=== PATIENT | male | born 1985 | race Hispanic/Latino ===

== ENCOUNTER 2018-02-18 21:59 | Inpatient (IN) | payer OTHER ==
[2018-02-18] MEDS ORDERED: Sodium Chloride 0.9% 1,000 ML IV STA (22:36)
[2018-02-18] MEDS ORDERED: Iohexol 240 (50 ml) PO ONE (22:36)
[2018-02-18] MEDS ORDERED: Iohexol 240 (50 ml) ONE (22:53)
[2018-02-18 23:16] LABS: BASO # 0.1 K/uL (0.0-0.2); BASO % 0.4 % (0.0-2.0); EOS # 0.1 K/uL (0.0-0.7); EOS % 0.8 % (0.0-4.0); HEMOGLOBIN 14.4 g/dL (12.0-18.0); LYMPH # 1.8 K/uL (1.0-4.3); LYMPH % 11.9 % (20.0-40.0); MEAN CELL VOLUME 93.6 fl (80.0-94.0); MEAN CORPUSCULAR HEMOGLOBIN 31.3 pg (27.0-31.0); MEAN CORPUSCULAR HGB CONC 33.5 g/dL (33.0-37.0); MONO # 1.3 K/uL (0.0-0.8); MONO % 8.6 % (0.0-10.0); NEUT # 11.5 K/uL (1.8-7.0); NEUT % 78.3 % (50.0-75.0); RBC 4.6 Mil/uL (4.40-5.90); RED CELL DISTRIBUTION WIDTH 11.7 % (11.5-14.5); WHITE BLOOD COUNT 14.7 K/uL (4.8-10.8)
[2018-02-18 23:26] LABS: ALB/GLOB RATIO 1.1 (1.0-2.1); ALBUMIN 4.2 g/dL (3.5-5.0); ALT/SGPT 39 U/L (21-72); AST/SGOT 34 U/L (17-59); BLOOD UREA NITROGEN 16 mg/dl (9-20); CALCIUM 9.5 mg/dL (8.4-10.2); GFR AFRICAN-AMERICAN > 60; GFR NON-AFRICAN AMERICAN > 60
[2018-02-19 00:42] LABS: URINE BILIRUBIN NEGATIVE (NEGATIVE); URINE BLOOD NEGATIVE (NEGATIVE); URINE CLARITY CLEAR (Clear); URINE COLOR STRAW (YELLOW); URINE GLUCOSE (UA) NEG (Normal); URINE LEUKOCYTE ESTERASE NEG Leu/uL (Negative); URINE PROTEIN NEGATIVE (NEGATIVE); URINE UROBILINOGEN 0.2-1.0 mg/dL (0.2-1.0)
--- NOTE | 2018-02-19 00:50 | ED PDOC ---
HPI: Abdomen Time Seen by Provider: 02/18/18 22:01 Chief Complaint (Nursing): Abdominal Pain Chief Complaint (Provider): Suprapubic abdominal pain intermittent x 3 weeks History Per: Patient History/Exam Limitations: no limitations Onset/Duration Of Symptoms: Days Outside of [place] travel?: No Current Symptoms Are (Timing): Still Present Location Of Pain/Discomfort: Suprapubic Additional Complaint(s): 32 yo male with no medical problems presents with suprapubic tenderness intermittent for 3 weeks. PT seen by PMD and given antibiotics for UTI. Pt returned to PMD yesterday and told it was not a UTI (cultures negative). Pt states that he was sent for labs and CT but cannot get the CT until next week. Pt states that tonight he was having sharp pain in the rectal area. Pt states he decided to come in because of worsening rectal pain and being unable to get CT until late next week. Pt taking tylenol for pain and reports decreased appetite. Past Medical History Reviewed: Historical Data, Nursing Documentation, Vital Signs Vital Signs: Last Vital Signs Temp 98.2 F 02/18/18 22:04 Pulse 92 H 02/18/18 22:04 Resp 20 02/18/18 22:04 BP 118/81 02/18/18 22:04 Pulse Ox 100 02/19/18 00:52 - Medical History PMH: No Chronic Diseases - Surgical History Surgical History: No Surg Hx - Family History Family History: States: No Known Family Hx - Living Arrangements Living Arrangements: With Family - Allergies Allergies/Adverse Reactions: Allergies Allergy/AdvReac Type Severity Reaction Status Date / Time No Known Allergies Allergy Verified 02/18/18 22:04 Review of Systems ROS Statement: Except As Marked, All Systems Reviewed And Found Negative Constitutional: Negative for: Fever, Chills Respiratory: Negative for: Cough, Shortness of Breath Gastrointestinal: Positive for: Abdominal Pain, Rectal Pain, Other (Decreased appetite ). Negative for: Nausea, Vomiting Physical Exam - Reviewed Nursing Documentation Reviewed: Yes Vital Signs Reviewed: Yes - Physical Exam Appears: Positive for: Well, Non-toxic, No Acute Distress Head Exam: Positive for: ATRAUMATIC, NORMAL INSPECTION, NORMOCEPHALIC Skin: Positive for: Normal Color, Warm, DRY Eye Exam: Positive for: Normal appearance ENT: Positive for: Normal ENT Inspection Neck: Positive for: Normal, Painless ROM Cardiovascular/Chest: Positive for: Regular Rate, Rhythm Respiratory: Positive for: Normal Breath Sounds. Negative for: Accessory Muscle Use, Respiratory Distress Gastrointestinal/Abdominal: Positive for: Soft, Tenderness (Suprapubic, right sided ) Back: Positive for: Normal Inspection Extremity: Positive for: Normal ROM Neurologic/Psych: Positive for: Alert, Oriented - Laboratory Results Result Diagrams: 02/18/18 23:13 02/18/18 23:13 - ECG O2 Sat by Pulse Oximetry: 100 Medical Decision Making Medical Decision Making: Elevated WBC Acute appendicitis with abscess formation. Discussed with Dr. Chris Landrum, rn surgical and Diogenes Vuong NP. Disposition - Clinical Impression Clinical Impression: Appendicitis with abscess - Patient ED Disposition Is Patient to be Admitted: Yes - Disposition Disposition Time: 03:24 Condition: STABLE - Pt Status Changed To: Hospital Disposition Of: Inpatient - Admit Certification Admit to Inpatient:: After my assessment, the patient will require hospitalization for at least two midnights. This is because of the severity of symptoms shown, intensity of services needed, and/or the medical risk in this patient being treated as an outpatient. - POA Present On Arrival: None
[2018-02-19] MEDS ORDERED: Iohexol 300 100 ML IJ ONE (01:26)
[2018-02-19] MEDS ORDERED: Sodium Chloride 0.9% 50 ML IV ONE (01:27)
--- NOTE | 2018-02-19 02:52 | CT ---
EXAM: CT Abdomen and Pelvis With Intravenous Contrast CLINICAL HISTORY: 32 years old, male; Pain; Other: Suprapubic. Rectal pain; Additional info: Suprapubic pain, rectal pain TECHNIQUE: Axial computed tomography images of the abdomen and pelvis with intravenous contrast. All CT scans at this facility use one or more dose reduction techniques, viz.: automated exposure control; ma/kV adjustment per patient size (including targeted exams where dose is matched to indication; i.e. head); or iterative reconstruction technique. Coronal and sagittal reformatted images were created and reviewed. CONTRAST: 95 mL of OMNIPAQUE-300 administered intravenously. COMPARISON: No relevant prior studies available. FINDINGS: Lung bases: Unremarkable. No mass. No consolidation. ABDOMEN: Liver: Unremarkable. No mass. Gallbladder and bile ducts: Unremarkable. No calcified stones. No ductal dilation. Pancreas: Unremarkable. No mass. No ductal dilation. Spleen: Unremarkable. No splenomegaly. Adrenals: Unremarkable. No mass. Kidneys and ureters: Unremarkable. No solid mass. No hydronephrosis. Stomach and bowel: See below. PELVIS: Appendix: Thick walled fluid collection in right pelvis series 2 image #57. This measures 2.8 x 2.8 CM. There is an adjacent thick walled loop of small bowel. Bladder: Unremarkable. No mass. Reproductive: Unremarkable as visualized. ABDOMEN and PELVIS: Intraperitoneal space: Inflammatory changes right lower quadrant. No free air. No significant fluid collection. Bones/joints: No acute fracture. No dislocation. Soft tissues: Unremarkable. Vasculature: Unremarkable. No abdominal aortic aneurysm. Lymph nodes: Multiple enlarged right lower quadrant mesenteric lymph nodes. IMPRESSION: CT findings suggestive of acute appendicitis with associated abscess formation. Remainder of findings as above.
[2018-02-19] MEDS ORDERED: Piperacillin/Tazobact 3.375 GM in Sodium Chloride 0.9% 100 ML IV STA (03:09)
[2018-02-19] MEDS ORDERED: Piperacillin/Tazobact 3.375 gm Inj IVPB ONE (03:34)
[2018-02-19] MEDS ORDERED: Morphine 4 MG/ML VIAL ONE (03:58)
--- NOTE | 2018-02-19 04:03 | CP.PCM.CON ---
History of Present Illness - History of Present Illness History of Present Illness: General Surgery Consult Re: Acute appendicitis with abscess HPI: 32M presented to the ED C/O suprapubic abdominal pain x 3 weeks. Pain progressively increased until 02/16/18 when it improved for a while and then came back. He had seen his PMD and the pt states he was sent for labs and a CT but cannot get the CT until next week. Tonight, he was having sharp pain in the rectal area and it was much worse with defecation. After feeling Nausea and feverish after the BM, he decided to come in because of worsening rectal pain and being unable to get CT until late next week. Pt taking tylenol for pain with minimal relief. + decreased appetite. Denies emesis, headache, chest pain, SOB, upper abd pain , melena, hematochezia, dysuria, hematuria. CT shows appendicitis with adjacent abscess in pelvis PMH: Denies PSH: Denies SH: No tobacco or street drugs. Social EtOH FH: Non contributory All: NKDA Meds: Denies Review of Systems - Review of Systems All systems: reviewed and no additional remarkable complaints except (as per HPI ) Past Patient History - Past Social History Smoking Status: Never Smoked - PSYCHIATRIC Hx Substance Use: No - SURGICAL HISTORY Hx Surgeries: No Meds Allergies/Adverse Reactions: Allergies Allergy/AdvReac Type Severity Reaction Status Date / Time No Known Allergies Allergy Verified 02/18/18 22:04 - Medications Medications: Current Medications Piperacillin Sod/Tazobactam (Sod 3.375 gm/ Sodium Chloride) 100 mls @ 100 mls/ hr IV STAT STA PRN Reason: Protocol Stop: 02/19/18 04:08 Physical Exam - Constitutional Appears: Non-toxic, No Acute Distress - Head Exam Head Exam: ATRAUMATIC, NORMOCEPHALIC - Eye Exam Eye Exam: EOMI. absent: Scleral icterus - ENT Exam ENT Exam: Mucous Membranes Dry Additional comments: trachea midline - Neck Exam Neck exam: Positive for: Full Rom - Respiratory Exam Respiratory Exam: NORMAL BREATHING PATTERN. absent: Respiratory Distress - Cardiovascular Exam Cardiovascular Exam: RRR, +S1, +S2 - GI/Abdominal Exam GI & Abdominal Exam: Guarding (mild over suprapubic area), Soft, Tenderness ( mild RLQ pain, Most in suprapubic area). absent: Distended, Firm, Hernia, Rebound, Rigid - Extremities Exam Extremities exam: Positive for: normal capillary refill, pedal pulses present. Negative for: calf tenderness - Back Exam Back exam: absent: CVA tenderness (L), CVA tenderness (R) - Psychiatric Exam Psychiatric exam: Anxious - Skin Skin Exam: Dry, Warm Results - Vital Signs Recent Vital Signs: Last Vital Signs Temp 98.2 F 02/18/18 22:04 Pulse 92 H 02/18/18 22:04 Resp 20 02/18/18 22:04 BP 118/81 02/18/18 22:04 Pulse Ox 100 02/19/18 03:24 - Labs Result Diagrams: 02/18/18 23:13 02/18/18 23:13 Labs: Laboratory Results - last 24 hr 02/18/18 02/18/18 02/19/18 23:13 23:13 00:27 WBC 14.7 H RBC 4.60 Hgb 14.4 Hct 43.0 MCV 93.6 MCH 31.3 H MCHC 33.5 RDW 11.7 Plt Count 248 MPV 9.0 Neut % (Auto) 78.3 H Lymph % (Auto) 11.9 L Tillman % (Auto) 8.6 Eos % (Auto) 0.8 Baso % (Auto) 0.4 Neut # (Auto) 11.5 H Lymph # (Auto) 1.8 Tillman # (Auto) 1.3 H Eos # (Auto) 0.1 Baso # (Auto) 0.1 Sodium 138 Potassium 4.3 Chloride 99 Carbon Dioxide 25 Anion Gap 18 BUN 16 Creatinine 0.8 Est GFR ( Amer) > 60 Est GFR (Non-Af Amer) > 60 Random Glucose 109 Calcium 9.5 Total Bilirubin 0.8 AST 34 ALT 39 Alkaline Phosphatase 86 Total Protein 8.1 Albumin 4.2 Globulin 3.9 Albumin/Globulin Ratio 1.1 Urine Color Straw Urine Clarity Clear Urine pH 7.0 Ur Specific [place] 1.006 Urine Protein Negative Urine Glucose (UA) Neg Urine Ketones 20 Urine Blood Negative Urine Nitrate Negative Urine Bilirubin Negative Urine Urobilinogen 0.2-1.0 Ur Leukocyte Esterase Neg - Imaging and Cardiology CT scan - abdomen Status: Image reviewed by me, Report reviewed by me Assessment & Plan - Assessment and Plan (Free Text) Assessment: 32M with perforated appendicitis Plan: NPO IVF Continue abx Serial abd exams, monitor for fevers Daily labs Recommend IR evaluation for possible drainage Will D/W Dr. Diallo Armijo PGY4
[2018-02-19] MEDS: Lactated Ringer's 1,000 ML IV SCH ×2 (05:49→17:10)
--- NOTE | 2018-02-19 08:21 | CP.PCM.HP ---
History of Present Illness - History of Present Illness History of Present Illness: pt admitted for perf appy after outpt tx for UTI and abd pain over 1 wk. states felt slightly better 2-3 days ago then felt worse. no f/c, n/v/d. bw noted. case d/c w/ vice president of human resources dr rubin. repeat labs ordered for this am Present on Admission - Present on Admission Any Indicators Present on Admission: No Review of Systems - Gastrointestinal Gastrointestinal: As Per HPI, Abdominal Pain Past Patient History - Past Medical History & Family History Past Medical History?: No - Past Social History Smoking Status: Never Smoked - MUSCULOSKELETAL/RHEUMATOLOGICAL Hx Falls: No - PSYCHIATRIC Hx Substance Use: No - SURGICAL HISTORY Hx Surgeries: No - ANESTHESIA Hx Anesthesia: No Hx Anesthesia Reactions: No Meds Allergies/Adverse Reactions: Allergies Allergy/AdvReac Type Severity Reaction Status Date / Time No Known Allergies Allergy Verified 02/18/18 22:04 Physical Exam - Constitutional Appears: Well, Non-toxic, No Acute Distress - Head Exam Head Exam: ATRAUMATIC, NORMAL INSPECTION, NORMOCEPHALIC - Eye Exam Eye Exam: EOMI, Normal appearance, PERRL Pupil Exam: NORMAL ACCOMODATION, PERRL - ENT Exam ENT Exam: Mucous Membranes Moist, Normal Exam - Neck Exam Neck exam: Positive for: Normal Inspection - Respiratory Exam Respiratory Exam: Clear to Auscultation Bilateral, NORMAL BREATHING PATTERN - Cardiovascular Exam Cardiovascular Exam: REGULAR RHYTHM, RRR, +S1, +S2 - GI/Abdominal Exam GI & Abdominal Exam: Normal Bowel Sounds, Soft, Tenderness Additional comments: rlq tenderness "soreness" - Extremities Exam Extremities exam: Positive for: full ROM, normal capillary refill, normal inspection, pedal pulses present - Back Exam Back exam: NORMAL INSPECTION - Neurological Exam Neurological exam: Alert, CN II-XII Intact, Normal Gait, Oriented x3, Reflexes Normal - Psychiatric Exam Psychiatric exam: Normal Affect, Normal Mood - Skin Skin Exam: Dry, Intact, Normal Color, Warm Results - Vital Signs Recent Vital Signs: Last Vital Signs Temp 97.8 F 02/19/18 07:55 Pulse 74 02/19/18 07:55 Resp 18 02/19/18 07:55 BP 102/54 L 02/19/18 07:55 Pulse Ox 99 02/19/18 07:55 - Labs Result Diagrams: 02/18/18 23:13 02/18/18 23:13 Labs: Laboratory Results - last 24 hr 02/18/18 02/18/18 02/19/18 23:13 23:13 00:27 WBC 14.7 H RBC 4.60 Hgb 14.4 Hct 43.0 MCV 93.6 MCH 31.3 H MCHC 33.5 RDW 11.7 Plt Count 248 MPV 9.0 Neut % (Auto) 78.3 H Lymph % (Auto) 11.9 L [place] % (Auto) 8.6 Eos % (Auto) 0.8 Baso % (Auto) 0.4 Neut # (Auto) 11.5 H Lymph # (Auto) 1.8 [place] # (Auto) 1.3 H Eos # (Auto) 0.1 Baso # (Auto) 0.1 Sodium 138 Potassium 4.3 Chloride 99 Carbon Dioxide 25 Anion Gap 18 BUN 16 Creatinine 0.8 Est GFR ( Amer) > 60 Est GFR (Non-Af Amer) > 60 Random Glucose 109 Lactic Acid Calcium 9.5 Total Bilirubin 0.8 AST 34 ALT 39 Alkaline Phosphatase 86 Total Protein 8.1 Albumin 4.2 Globulin 3.9 Albumin/Globulin Ratio 1.1 Urine Color Straw Urine Clarity Clear Urine pH 7.0 Ur Specific [place] 1.006 Urine Protein Negative Urine Glucose (UA) Neg Urine Ketones 20 Urine Blood Negative Urine Nitrate Negative Urine Bilirubin Negative Urine Urobilinogen 0.2-1.0 Ur Leukocyte Esterase Neg 02/19/18 04:31 WBC RBC Hgb Hct MCV MCH MCHC RDW Plt Count MPV Neut % (Auto) Lymph % (Auto) [place] % (Auto) Eos % (Auto) Baso % (Auto) Neut # (Auto) Lymph # (Auto) [place]y # (Auto) Eos # (Auto) Baso # (Auto) Sodium Potassium Chloride Carbon Dioxide Anion Gap BUN Creatinine Est GFR ( Amer) Est GFR (Non-Af Amer) Random Glucose Lactic Acid 0.9 Calcium Total Bilirubin AST ALT Alkaline Phosphatase Total Protein Albumin Globulin Albumin/Globulin Ratio Urine Color Urine Clarity Urine pH Ur Specific [place] Urine Protein Urine Glucose (UA) Urine Ketones Urine Blood Urine Nitrate Urine Bilirubin Urine Urobilinogen Ur Leukocyte Esterase Assessment & Plan (1) DVT prophylaxis Assessment and Plan: scd and ae hose ambulation Status: Acute (2) Appendicitis with abscess Assessment and Plan: zosyn surgery and ?? ir consult pain and nausea control ivf npo monitor bw serial abd exams Status: Acute Decision To Admit - Pt Status Changed To: Hospital Disposition Of: Inpatient - Admit Certification Admit to Inpatient:: After my assessment, the patient will require hospitalization for at least two midnights. This is because of the severity of symptoms shown, intensity of services needed, and/or the medical risk in this patient being treated as an outpatient. - . Bed Request Type: Med/Surg Admitting Physician: Zach Hennessy
[2018-02-19] MEDS: Piperacillin/Tazobact 3.375 GM in Sodium Chloride 0.9% 100 ML IVPB SCH ×3 (09:46→21:44)
[2018-02-19 12:04] LABS: BASO # 0.1 K/uL (0.0-0.2); BASO % 0.3 % (0.0-2.0); EOS # 0.2 K/uL (0.0-0.7); HEMOGLOBIN 14.1 g/dL (12.0-18.0); LYMPH # 1.3 K/uL (1.0-4.3); LYMPH % 7.8 % (20.0-40.0); MEAN CELL VOLUME 92.3 fl (80.0-94.0); MEAN CORPUSCULAR HGB CONC 34.7 g/dL (33.0-37.0); MEAN PLATELET VOLUME 9.4 fl (7.2-11.7); MONO # 1.4 K/uL (0.0-0.8); MONO % 8.1 % (0.0-10.0); NEUT # 14.2 K/uL (1.8-7.0); NEUT % 82.8 % (50.0-75.0); NRBC % 0.1 % (0.0-0.0); PLATELET COUNT 259 K/uL (130-400); RED CELL DISTRIBUTION WIDTH 11.7 % (11.5-14.5); WHITE BLOOD COUNT 17.1 K/uL (4.8-10.8)
[2018-02-19 12:32] LABS: ALB/GLOB RATIO 1.1 (1.0-2.1); ALBUMIN 3.6 g/dL (3.5-5.0); ALT/SGPT 36 U/L (21-72); AST/SGOT 20 U/L (17-59); BLOOD UREA NITROGEN 13 mg/dl (9-20); CALCIUM 9.1 mg/dL (8.4-10.2); GFR AFRICAN-AMERICAN > 60; GFR NON-AFRICAN AMERICAN > 60
[2018-02-19 13:13] LABS: BANDS 2 % (0-2); EOSINOPHIL 1 % (0-7); LYMPHOCYTE 8 % (20-50); MONOCYTE 8 % (0-10); NEUTROPHIL 81 % (42-75); PLATELET ESTIMATE NORMAL (NORMAL); TOTAL CELLS COUNTED 100
[2018-02-20] MEDS: Piperacillin/Tazobact 3.375 GM in Sodium Chloride 0.9% 100 ML IVPB SCH ×4 (04:23→21:50)
[2018-02-20 06:26] LABS: BASO % 0.3 % (0.0-2.0); EOS # 0.3 K/uL (0.0-0.7); EOS % 2.5 % (0.0-4.0); HEMOGLOBIN 13.6 g/dL (12.0-18.0); LYMPH # 1.8 K/uL (1.0-4.3); LYMPH % 13.7 % (20.0-40.0); MEAN CELL VOLUME 93.4 fl (80.0-94.0); MEAN CORPUSCULAR HEMOGLOBIN 31.5 pg (27.0-31.0); MEAN CORPUSCULAR HGB CONC 33.7 g/dL (33.0-37.0); MEAN PLATELET VOLUME 8.9 fl (7.2-11.7); MONO # 1.3 K/uL (0.0-0.8); MONO % 9.8 % (0.0-10.0); NEUT # 9.6 K/uL (1.8-7.0); NEUT % 73.7 % (50.0-75.0); RBC 4.31 Mil/uL (4.40-5.90); RED CELL DISTRIBUTION WIDTH 11.9 % (11.5-14.5)
[2018-02-20] MEDS: Lactated Ringer's 1,000 ML IV SCH ×3 (06:38→21:03)
[2018-02-20 06:48] LABS: ALBUMIN 3.3 g/dL (3.5-5.0); ALT/SGPT 32 U/L (21-72); AST/SGOT 17 U/L (17-59); BLOOD UREA NITROGEN 7 mg/dl (9-20); GFR AFRICAN-AMERICAN > 60; GFR NON-AFRICAN AMERICAN > 60
--- NOTE | 2018-02-20 09:30 | CP.PCM.PN ---
Subjective - Date & Time of Evaluation Date of Evaluation: 02/20/18 Time of Evaluation: 09:30 - Subjective Subjective: pt doing well, bw noted-wbc now 13. chris liquid, ?? adv as per surgery ir consult in am all c/s to this time negative. pt c/o mild headahce-tylenol ordered case d/c at length w/dr park-surgery Objective - Vital Signs/Intake and Output Vital Signs (last 24 hours): Temp Pulse Resp BP Pulse Ox 98.1 F 74 20 101/64 97 02/20/18 08:38 02/20/18 08:38 02/20/18 08:38 02/20/18 08:38 02/20/18 08:38 - Medications Medications: Current Medications Piperacillin Sod/Tazobactam (Sod 3.375 gm/ Sodium Chloride) 100 mls @ 100 mls/ hr IVPB Q6 GIRISH PRN Reason: Protocol Last Admin: 02/20/18 04:23 Dose: 100 mls/hr Lactated Ringer's (Lactated Ringer's) 1,000 mls @ 100 mls/hr IV .Q10H [facility] Last Admin: 02/20/18 06:38 Dose: 100 mls/hr Morphine Sulfate (Morphine) 4 mg IVP Q4 PRN PRN Reason: Pain, moderate (4-7) Last Admin: 02/20/18 04:32 Dose: 4 mg Ondansetron HCl (Zofran Inj) 4 mg IVP Q4 PRN PRN Reason: Nausea/Vomiting Last Admin: 02/20/18 04:30 Dose: 4 mg - Labs Labs: 02/20/18 06:05 02/20/18 06:05 - Constitutional Appears: Well, Non-toxic, No Acute Distress - Head Exam Head Exam: ATRAUMATIC, NORMAL INSPECTION, NORMOCEPHALIC - Eye Exam Eye Exam: EOMI, Normal appearance, PERRL Pupil Exam: NORMAL ACCOMODATION, PERRL - ENT Exam ENT Exam: Mucous Membranes Moist, Normal Exam - Neck Exam Neck Exam: Full ROM, Normal Inspection. absent: Lymphadenopathy - Respiratory Exam Respiratory Exam: Clear to Ausculation Bilateral, NORMAL BREATHING PATTERN - Cardiovascular Exam Cardiovascular Exam: REGULAR RHYTHM, RRR, +S1, +S2. absent: Murmur - GI/Abdominal Exam GI & Abdominal Exam: Soft, Tenderness, Normal Bowel Sounds Additional comments: sore ness to rlq - Extremities Exam Extremities Exam: Full ROM, Normal Capillary Refill, Normal Inspection. absent : Joint Swelling, Pedal Edema - Back Exam Back Exam: NORMAL INSPECTION - Neurological Exam Neurological Exam: Alert, Awake, CN II-XII Intact, Normal Gait, Oriented x3 - Psychiatric Exam Psychiatric exam: Normal Affect, Normal Mood - Skin Skin Exam: Dry, Intact, Normal Color, Warm Assessment and Plan (1) DVT prophylaxis Status: Acute (2) Appendicitis with abscess Status: Acute - Assessment and Plan (Free Text) Assessment: (1) DVT prophylaxis Assessment and Plan: scd and ae hose ambulation Status: Acute (2) Appendicitis with abscess Assessment and Plan: zosyn surgery and ?? ir consult pain and nausea control ivf npo monitor bw serial abd exams adv diet as per surgery appears to be improving Status: Acute 3-headache=-tylenol prn, hydration
--- NOTE | 2018-02-20 11:20 | CP.PCM.PN ---
Subjective - Date & Time of Evaluation Date of Evaluation: 02/20/18 Time of Evaluation: 06:50 - Subjective Subjective: Patient seen and examined with Dr. Landrum. No acute events over night. Tolerating liquid diet. Patient states he feels better. Reports some RLQ abdominal pain. Denies n/v. Objective - Vital Signs/Intake and Output Vital Signs (last 24 hours): Temp Pulse Resp BP Pulse Ox 98.1 F 74 20 101/64 97 02/20/18 08:38 02/20/18 08:38 02/20/18 08:38 02/20/18 08:38 02/20/18 08:38 - Medications Medications: Current Medications Acetaminophen (Tylenol 325mg Tab) 650 mg PO Q6 PRN PRN Reason: Headache Last Admin: 02/20/18 10:18 Dose: 650 mg Piperacillin Sod/Tazobactam (Sod 3.375 gm/ Sodium Chloride) 100 mls @ 100 mls/ hr IVPB Q6 GIRISH PRN Reason: Protocol Last Admin: 02/20/18 09:44 Dose: 100 mls/hr Lactated Ringer's (Lactated Ringer's) 1,000 mls @ 100 mls/hr IV .Q10H GIRISH Last Admin: 02/20/18 06:38 Dose: 100 mls/hr Morphine Sulfate (Morphine) 4 mg IVP Q4 PRN PRN Reason: Pain, moderate (4-7) Last Admin: 02/20/18 04:32 Dose: 4 mg Ondansetron HCl (Zofran Inj) 4 mg IVP Q4 PRN PRN Reason: Nausea/Vomiting Last Admin: 02/20/18 04:30 Dose: 4 mg - Labs Labs: 02/20/18 06:05 02/20/18 06:05 - Constitutional Appears: No Acute Distress - Head Exam Head Exam: NORMOCEPHALIC - Eye Exam Eye Exam: Normal appearance - ENT Exam ENT Exam: Mucous Membranes Moist - Respiratory Exam Respiratory Exam: NORMAL BREATHING PATTERN - Cardiovascular Exam Cardiovascular Exam: +S1, +S2 - GI/Abdominal Exam GI & Abdominal Exam: Soft, Tenderness Additional comments: RLQ tenderness on deep palpation - Neurological Exam Neurological Exam: Alert, Awake, Oriented x3 - Psychiatric Exam Psychiatric exam: Normal Mood - Skin Skin Exam: Dry, Intact, Warm Assessment and Plan - Assessment and Plan (Free Text) Assessment: 32M w appendicitis and periappendiceal abscess Plan: Full liquid diet ABx Analgesic prn Anti-emetic prn Tylenol prn fever>100.4F Recommend IR consult for abd abscess D/w Dr. Diallo BADILLO PGY2
[2018-02-21] MEDS: Piperacillin/Tazobact 3.375 GM in Sodium Chloride 0.9% 100 ML IVPB SCH ×4 (04:12→21:21)
[2018-02-21 06:21] LABS: BASO % 0.3 % (0.0-2.0); EOS # 0.4 K/uL (0.0-0.7); EOS % 3.2 % (0.0-4.0); HEMOGLOBIN 13.8 g/dL (12.0-18.0); LYMPH % 16.8 % (20.0-40.0); MEAN CELL VOLUME 93.9 fl (80.0-94.0); MEAN CORPUSCULAR HEMOGLOBIN 31.3 pg (27.0-31.0); MEAN CORPUSCULAR HGB CONC 33.3 g/dL (33.0-37.0); MEAN PLATELET VOLUME 8.8 fl (7.2-11.7); MONO % 8.8 % (0.0-10.0); NEUT # 8.3 K/uL (1.8-7.0); NEUT % 70.9 % (50.0-75.0); RBC 4.42 Mil/uL (4.40-5.90); RED CELL DISTRIBUTION WIDTH 11.6 % (11.5-14.5); WHITE BLOOD COUNT 11.7 K/uL (4.8-10.8)
[2018-02-21 06:45] LABS: ALBUMIN 3.4 g/dL (3.5-5.0); ALT/SGPT 32 U/L (21-72); AST/SGOT 18 U/L (17-59); BLOOD UREA NITROGEN 4 mg/dl (9-20); GFR AFRICAN-AMERICAN > 60; GFR NON-AFRICAN AMERICAN > 60
--- NOTE | 2018-02-21 07:54 | CP.PCM.PN ---
Subjective - Date & Time of Evaluation Date of Evaluation: 02/21/18 Time of Evaluation: 07:53 - Subjective Subjective: pt doign well, pain controlled. nof/c, n/v/d. having + bm. seen at bedside w/ surgical residents for ir [place] today Objective - Vital Signs/Intake and Output Vital Signs (last 24 hours): Temp Pulse Resp BP Pulse Ox 98.4 F 70 20 92/54 L 100 02/21/18 00:00 02/21/18 00:00 02/21/18 00:00 02/21/18 00:00 02/21/18 00:00 - Medications Medications: Current Medications Acetaminophen (Tylenol 325mg Tab) 650 mg PO Q6 PRN PRN Reason: Headache Last Admin: 02/20/18 10:18 Dose: 650 mg Piperacillin Sod/Tazobactam (Sod 3.375 gm/ Sodium Chloride) 100 mls @ 100 mls/ hr IVPB Q6 GIRISH PRN Reason: Protocol Last Admin: 02/21/18 04:12 Dose: 100 mls/hr Lactated Ringer's (Lactated Ringer's) 1,000 mls @ 100 mls/hr IV .Q10H GIRISH Last Admin: 02/20/18 21:03 Dose: 100 mls/hr Morphine Sulfate (Morphine) 4 mg IVP Q4 PRN PRN Reason: Pain, moderate (4-7) Last Admin: 02/20/18 04:32 Dose: 4 mg Ondansetron HCl (Zofran Inj) 4 mg IVP Q4 PRN PRN Reason: Nausea/Vomiting Last Admin: 02/20/18 20:58 Dose: 4 mg - Labs Labs: 02/21/18 06:00 02/21/18 06:00 - Constitutional Appears: Well, Non-toxic, No Acute Distress - Head Exam Head Exam: ATRAUMATIC, NORMAL INSPECTION, NORMOCEPHALIC - Eye Exam Eye Exam: EOMI, Normal appearance, PERRL Pupil Exam: NORMAL ACCOMODATION, PERRL - ENT Exam ENT Exam: Mucous Membranes Moist, Normal Exam - Neck Exam Neck Exam: Full ROM, Normal Inspection. absent: Lymphadenopathy - Respiratory Exam Respiratory Exam: Clear to Ausculation Bilateral, NORMAL BREATHING PATTERN - Cardiovascular Exam Cardiovascular Exam: REGULAR RHYTHM, RRR, +S1, +S2. absent: Murmur - GI/Abdominal Exam GI & Abdominal Exam: Soft, Normal Bowel Sounds. absent: Tenderness - Extremities Exam Extremities Exam: Full ROM, Normal Capillary Refill, Normal Inspection. absent : Joint Swelling, Pedal Edema - Back Exam Back Exam: NORMAL INSPECTION - Neurological Exam Neurological Exam: Alert, Awake, CN II-XII Intact, Normal Gait, Oriented x3 - Psychiatric Exam Psychiatric exam: Normal Affect, Normal Mood - Skin Skin Exam: Dry, Intact, Normal Color, Warm Assessment and Plan (1) DVT prophylaxis Status: Acute (2) Appendicitis with abscess Status: Acute - Assessment and Plan (Free Text) Assessment: (1) DVT prophylaxis Assessment and Plan: scd and ae hose ambulation Status: Acute (2) Appendicitis with abscess Assessment and Plan: zosyn surgery and ir consult today pain and nausea control ivf liquid diet monitor bw serial abd exams adv diet as per surgery appears to be improving Status: Acute 3-headache=-tylenol prn, hydration
--- NOTE | 2018-02-21 08:43 | PCM.IRP ---
Chief Complaint: IR consulted to eval for percutaneous drainage of perforated appendiceal abscess. CT reviewed. No safe window for percutaneous drainage. Objective - Vital Signs/Intake and Output Vital Signs (last 24 hours): Vital Signs - 24 hr 02/20/18 02/20/18 02/21/18 16:03 16:27 00:00 Temperature 98.2 F 98.4 F Pulse Rate 60 61 70 Respiratory 20 18 20 Rate Blood Pressure 92/59 L 92/54 L O2 Sat by Pulse 99 99 100 Oximetry 02/21/18 07:53 Temperature 98.1 F Pulse Rate 60 Respiratory 20 Rate Blood Pressure 93/59 L O2 Sat by Pulse 97 Oximetry - Medications Medications: Current Medications Acetaminophen (Tylenol 325mg Tab) 650 mg PO Q6 PRN PRN Reason: Headache Last Admin: 02/20/18 10:18 Dose: 650 mg Piperacillin Sod/Tazobactam (Sod 3.375 gm/ Sodium Chloride) 100 mls @ 100 mls/ hr IVPB Q6 GIRISH PRN Reason: Protocol Last Admin: 02/21/18 04:12 Dose: 100 mls/hr Lactated Ringer's (Lactated Ringer's) 1,000 mls @ 100 mls/hr IV .Q10H GIRISH Last Admin: 02/20/18 21:03 Dose: 100 mls/hr Morphine Sulfate (Morphine) 4 mg IVP Q4 PRN PRN Reason: Pain, moderate (4-7) Last Admin: 02/20/18 04:32 Dose: 4 mg Ondansetron HCl (Zofran Inj) 4 mg IVP Q4 PRN PRN Reason: Nausea/Vomiting Last Admin: 02/20/18 20:58 Dose: 4 mg - Labs Labs (last 24 hours): Laboratory Results - last 24 hr 02/21/18 02/21/18 06:00 06:00 WBC 11.7 H RBC 4.42 Hgb 13.8 Hct 41.5 MCV 93.9 MCH 31.3 H MCHC 33.3 RDW 11.6 Plt Count 285 MPV 8.8 Neut % (Auto) 70.9 Lymph % (Auto) 16.8 L [place] % (Auto) 8.8 Eos % (Auto) 3.2 Baso % (Auto) 0.3 Neut # (Auto) 8.3 H Lymph # (Auto) 2.0 [place] # (Auto) 1.0 H Eos # (Auto) 0.4 Baso # (Auto) 0.0 Sodium 141 Potassium 3.8 Chloride 101 Carbon Dioxide 29 Anion Gap 15 BUN 4 L Creatinine 0.9 Est GFR ( Amer) > 60 Est GFR (Non-Af Amer) > 60 Random Glucose 94 Calcium 9.0 Total Bilirubin 0.6 AST 18 ALT 32 Alkaline Phosphatase 53 Total Protein 6.8 Albumin 3.4 L Globulin 3.4 Albumin/Globulin Ratio 1.0
--- NOTE | 2018-02-21 09:49 | CP.PCM.PN ---
Subjective - Date & Time of Evaluation Date of Evaluation: 02/21/18 Time of Evaluation: 09:46 - Subjective Subjective: Surgery Pt seen and examined. NO acute events. Denies fever, nausea, CP, SOB. + void + amb. Evaluated by IR. Unable to drain. Pain controlled. Report loose stool Objective - Vital Signs/Intake and Output Vital Signs (last 24 hours): Temp Pulse Resp BP Pulse Ox 98.1 F 60 20 93/59 L 97 02/21/18 07:53 02/21/18 07:53 02/21/18 07:53 02/21/18 07:53 02/21/18 07:53 - Medications Medications: Current Medications Acetaminophen (Tylenol 325mg Tab) 650 mg PO Q6 PRN PRN Reason: Headache Last Admin: 02/20/18 10:18 Dose: 650 mg Piperacillin Sod/Tazobactam (Sod 3.375 gm/ Sodium Chloride) 100 mls @ 100 mls/ hr IVPB Q6 GIRISH PRN Reason: Protocol Last Admin: 02/21/18 09:41 Dose: 100 mls/hr Lactated Ringer's (Lactated Ringer's) 1,000 mls @ 100 mls/hr IV .Q10H G[facility] Last Admin: 02/20/18 21:03 Dose: 100 mls/hr Morphine Sulfate (Morphine) 4 mg IVP Q4 PRN PRN Reason: Pain, moderate (4-7) Last Admin: 02/20/18 04:32 Dose: 4 mg Ondansetron HCl (Zofran Inj) 4 mg IVP Q4 PRN PRN Reason: Nausea/Vomiting Last Admin: 02/20/18 20:58 Dose: 4 mg Oxycodone/Acetaminophen (Percocet 5/325 Mg Tab) 2 tab PO Q4 PRN PRN Reason: Pain, moderate (4-7) Stop: 02/24/18 09:46 - Labs Labs: 02/21/18 06:00 02/21/18 06:00 - Constitutional Appears: No Acute Distress - Head Exam Head Exam: ATRAUMATIC, NORMAL INSPECTION, NORMOCEPHALIC - Eye Exam Eye Exam: EOMI, Normal appearance, PERRL Pupil Exam: NORMAL ACCOMODATION, PERRL - ENT Exam ENT Exam: Mucous Membranes Moist, Normal Exam - Neck Exam Neck Exam: Full ROM, Normal Inspection. absent: Lymphadenopathy - Respiratory Exam Respiratory Exam: Clear to Ausculation Bilateral, NORMAL BREATHING PATTERN - Cardiovascular Exam Cardiovascular Exam: REGULAR RHYTHM - GI/Abdominal Exam GI & Abdominal Exam: Soft, Tenderness, Normal Bowel Sounds. absent: Distended, Firm, Guarding, Rigid Additional comments: Low abd TTP - Exam Exam: NORMAL INSPECTION - Extremities Exam Extremities Exam: Full ROM, Normal Capillary Refill, Normal Inspection. absent : Joint Swelling, Pedal Edema - Back Exam Back Exam: NORMAL INSPECTION - Neurological Exam Neurological Exam: Alert, Awake, CN II-XII Intact, Normal Gait, Oriented x3 - Psychiatric Exam Psychiatric exam: Normal Affect, Normal Mood - Skin Skin Exam: Dry, Intact, Normal Color, Warm Assessment and Plan - Assessment and Plan (Free Text) Assessment: Perforated appendicitis -ABX -IVF -Advance diet as tolerated -IS, OOB, ambulate -DVT/GI ppx Will DW surgical attending.
[2018-02-21] MEDS: Lactated Ringer's 1,000 ML IV SCH (16:30)
[2018-02-21] MEDS: Oxycodone/Acetaminophen 5/325 mg Tab PO PRN (21:22)
[2018-02-22] MEDS: Lactated Ringer's 1,000 ML IV SCH ×2 (03:00→04:21)
[2018-02-22] MEDS: Piperacillin/Tazobact 3.375 GM in Sodium Chloride 0.9% 100 ML IVPB SCH ×2 (04:20→09:11)
[2018-02-22] MEDS: Oxycodone/Acetaminophen 5/325 mg Tab PO PRN (05:07)
[2018-02-22 06:31] LABS: HEMOGLOBIN 13.5 g/dL (12.0-18.0); MEAN CELL VOLUME 93.1 fl (80.0-94.0); MEAN CORPUSCULAR HGB CONC 34.3 g/dL (33.0-37.0); RBC 4.23 Mil/uL (4.40-5.90); RED CELL DISTRIBUTION WIDTH 11.7 % (11.5-14.5); WHITE BLOOD COUNT 6.2 K/uL (4.8-10.8)
[2018-02-22 06:47] LABS: ALBUMIN 3.2 g/dL (3.5-5.0); ALT/SGPT 29 U/L (21-72); AST/SGOT 21 U/L (17-59); BLOOD UREA NITROGEN 8 mg/dl (9-20); CALCIUM 8.9 mg/dL (8.4-10.2); GFR AFRICAN-AMERICAN > 60; GFR NON-AFRICAN AMERICAN > 60
[2018-02-22 08:13] VITALS: BP 94/57; PULSE 72; RESP 18; TEMP 97.9; O2SAT 97
--- NOTE | 2018-02-22 08:40 | CP.PCM.DIS ---
Provider - Provider Date of Admission: 02/19/18 03:09 Attending physician: Diogenes Vuong, JOB, RUMPER Time Spent in preparation of Discharge (in minutes): 15 Diagnosis - Discharge Diagnosis (1) DVT prophylaxis Status: Acute (2) Appendicitis with abscess Status: Acute Hospital Course - Lab Results Lab Results: Micro Results 02/19/18 04:31 Blood Blood Culture - Preliminary NO GROWTH AFTER 48 HOURS 02/19/18 05:01 Blood Blood Culture - Preliminary NO GROWTH AFTER 48 HOURS 02/19/18 11:00 Urine Urine Culture - Final No Growth (<1,000 CFU/ML) Most Recent Lab Values WBC 6.2 K/uL (4.8-10.8) 02/22/18 06:00 RBC 4.23 Mil/uL (4.40-5.90) L 02/22/18 06:00 Hgb 13.5 g/dL (12.0-18.0) 02/22/18 06:00 Hct 39.4 % (35.0-51.0) 02/22/18 06:00 MCV 93.1 fl (80.0-94.0) 02/22/18 06:00 MCH 32.0 pg (27.0-31.0) H 02/22/18 06:00 MCHC 34.3 g/dL (33.0-37.0) 02/22/18 06:00 RDW 11.7 % (11.5-14.5) 02/22/18 06:00 Plt Count 271 K/uL (130-400) 02/22/18 06:00 MPV 8.8 fl (7.2-11.7) 02/21/18 06:00 Neut % (Auto) 70.9 % (50.0-75.0) 02/21/18 06:00 Lymph % (Auto) 16.8 % (20.0-40.0) L 02/21/18 06:00 [place]ette % (Auto) 8.8 % (0.0-10.0) 02/21/18 06:00 Eos % (Auto) 3.2 % (0.0-4.0) 02/21/18 06:00 Baso % (Auto) 0.3 % (0.0-2.0) 02/21/18 06:00 Neut # (Auto) 8.3 K/uL (1.8-7.0) H 02/21/18 06:00 Lymph # (Auto) 2.0 K/uL (1.0-4.3) 02/21/18 06:00 Payette # (Auto) 1.0 K/uL (0.0-0.8) H 02/21/18 06:00 Eos # (Auto) 0.4 K/uL (0.0-0.7) 02/21/18 06:00 Baso # (Auto) 0.0 K/uL (0.0-0.2) 02/21/18 06:00 Neutrophils % (Manual) 81 % (42-75) H 02/19/18 11:39 Band Neutrophils % 2 % (0-2) 02/19/18 11:39 Lymphocytes % (Manual) 8 % (20-50) L 02/19/18 11:39 Monocytes % (Manual) 8 % (0-10) 02/19/18 11:39 Eosinophils % (Manual) 1 % (0-7) 02/19/18 11:39 Platelet Estimate Normal (NORMAL) 02/19/18 11:39 RBC Morphology Normal (NORMAL) 02/19/18 11:39 Sodium 141 mmol/l (132-148) 02/22/18 06:00 Potassium 3.7 MMOL/L (3.6-5.0) 02/22/18 06:00 Chloride 102 mmol/L (98-107) 02/22/18 06:00 Carbon Dioxide 30 mmol/L (22-30) 02/22/18 06:00 Anion Gap 13 (10-20) 02/22/18 06:00 BUN 8 mg/dl (9-20) L 02/22/18 06:00 Creatinine 0.7 mg/dl (0.8-1.5) L 02/22/18 06:00 Est GFR ( Amer) > 60 02/22/18 06:00 Est GFR (Non-Af Amer) > 60 02/22/18 06:00 Random Glucose 86 mg/dL (75-110) 02/22/18 06:00 Lactic Acid 0.9 MMOL/L (0.7-2.1) 02/19/18 04:31 Calcium 8.9 mg/dL (8.4-10.2) 02/22/18 06:00 Total Bilirubin 0.3 mg/dl (0.2-1.3) 02/22/18 06:00 AST 21 U/L (17-59) 02/22/18 06:00 ALT 29 U/L (21-72) 02/22/18 06:00 Alkaline Phosphatase 48 U/L (38-126) 02/22/18 06:00 Total Protein 6.6 G/DL (6.3-8.2) 02/22/18 06:00 Albumin 3.2 g/dL (3.5-5.0) L 02/22/18 06:00 Globulin 3.3 gm/dL (2.2-3.9) 02/22/18 06:00 Albumin/Globulin Ratio 1.0 (1.0-2.1) 02/22/18 06:00 Urine Color Straw (YELLOW) 02/19/18 00:27 Urine Clarity Clear (Clear) 02/19/18 00:27 Urine pH 7.0 (5.0-8.0) 02/19/18 00:27 Ur Specific Bern 1.006 (1.003-1.030) 02/19/18 00:27 Urine Protein Negative mg/dL (NEGATIVE) 02/19/18 00:27 Urine Glucose (UA) Neg mg/dL (Normal) 02/19/18 00:27 Urine Ketones 20 mg/dL (NEGATIVE) 02/19/18 00:27 Urine Blood Negative (NEGATIVE) 02/19/18 00: Urine Nitrate Negative (NEGATIVE) 02/19/18 00:27 Urine Bilirubin Negative (NEGATIVE) 02/19/18 00:27 Urine Urobilinogen 0.2-1.0 mg/dL (0.2-1.0) 02/19/18 00:27 Ur Leukocyte Esterase Neg Juanjose/uL (Negative) 02/19/18 00:27 - Hospital Course Hospital Course: pain control surgery ivf iv zosyn bw Discharge Exam - Head Exam Head Exam: ATRAUMATIC, NORMAL INSPECTION, NORMOCEPHALIC - Eye Exam Eye Exam: EOMI, Normal appearance, PERRL Pupil Exam: NORMAL ACCOMODATION, PERRL - Respiratory Exam Respiratory Exam: Clear to PA & Lateral, NORMAL BREATHING PATTERN, UNREMARKABLE - Cardiovascular Exam Cardiovascular Exam: REGULAR RHYTHM, RRR, +S1, +S2 - GI/Abdominal Exam GI & Abdominal Exam: Normal Bowel Sounds, Soft, Unremarkable - Extremities Exam Extremities exam: full ROM, normal capillary refill, normal inspection, pedal pulses present - Neurological Exam Neurological exam: Alert, CN II-XII Intact, Normal Gait, Oriented x3, Reflexes Normal - Psychiatric Exam Psychiatric exam: Normal Affect, Normal Mood - Skin Skin Exam: Dry, Intact, Normal Color, Warm Discharge Plan - Discharge Medications Prescriptions: Amoxicillin/Clavulanate [Augmentin 875 MG-125 MG] 1 tab PO BID #14 tab oxyCODONE/Acetaminophen [Percocet 5/325 mg Tab] 1 tab PO Q4 PRN #10 tab PRN Reason: Pain, Severe (8-10) - Follow Up Plan Condition: STABLE Disposition: HOME/ ROUTINE Instructions: Appendicitis, Adult (DC) Additional Instructions: cleared by surgery for dc. f/u rmg tuesday, outpt ct 10-14 days. surgery f/u after final dx-acute ap w/ rupture and abscess doing well, chris po, no f/c nn/v/d. pain controlled resps even adn unlabored. f/u rmg tuesday, rted prn, mesd per med rec Referrals: Moisés Landrum MD [Staff Provider] - Leander Elder MD [Family Provider] -
--- NOTE | 2018-02-22 11:46 | CP.PCM.PN ---
Subjective - Date & Time of Evaluation Date of Evaluation: 02/22/18 Time of Evaluation: 11:15 - Subjective Subjective: Patient was seen and examined at the bedside. Denies any abdominal pain, tolerating diet. Objective - Vital Signs/Intake and Output Vital Signs (last 24 hours): Temp Pulse Resp BP Pulse Ox 97.9 F 72 18 94/57 L 97 02/22/18 08:12 02/22/18 08:12 02/22/18 08:12 02/22/18 08:12 02/22/18 08:12 - Medications Medications: Current Medications Acetaminophen (Tylenol 325mg Tab) 650 mg PO Q6 PRN PRN Reason: Headache Last Admin: 02/20/18 10:18 Dose: 650 mg Piperacillin Sod/Tazobactam (Sod 3.375 gm/ Sodium Chloride) 100 mls @ 100 mls/ hr IVPB Q6 GIRISH PRN Reason: Protocol Last Admin: 02/22/18 09:11 Dose: 100 mls/hr Lactated Ringer's (Lactated Ringer's) 1,000 mls @ 100 mls/hr IV .Q10H [facility] Last Admin: 02/22/18 04:21 Dose: 100 mls/hr Morphine Sulfate (Morphine) 4 mg IVP Q4 PRN PRN Reason: Pain, moderate (4-7) Last Admin: 02/20/18 04:32 Dose: 4 mg Ondansetron HCl (Zofran Inj) 4 mg IVP Q4 PRN PRN Reason: Nausea/Vomiting Last Admin: 02/20/18 20:58 Dose: 4 mg Oxycodone/Acetaminophen (Percocet 5/325 Mg Tab) 2 tab PO Q4 PRN PRN Reason: Pain, moderate (4-7) Stop: 02/24/18 09:46 Last Admin: 02/22/18 05:07 Dose: 2 tab - Labs Labs: 02/22/18 06:00 02/22/18 06:00 - Constitutional Appears: Well, Non-toxic, No Acute Distress - Head Exam Head Exam: ATRAUMATIC, NORMAL INSPECTION, NORMOCEPHALIC - Eye Exam Eye Exam: EOMI, Normal appearance, PERRL Pupil Exam: NORMAL ACCOMODATION, PERRL - ENT Exam ENT Exam: Mucous Membranes Moist, Normal Exam - Neck Exam Neck Exam: Full ROM, Normal Inspection - Respiratory Exam Respiratory Exam: Clear to Ausculation Bilateral, NORMAL BREATHING PATTERN - Cardiovascular Exam Cardiovascular Exam: REGULAR RHYTHM, +S1, +S2 - GI/Abdominal Exam GI & Abdominal Exam: Soft, Normal Bowel Sounds Additional comments: NT, ND, no rebound, no guarding - Rectal Exam Rectal Exam: Deferred - Extremities Exam Extremities Exam: Full ROM, Normal Inspection - Neurological Exam Neurological Exam: Alert, Awake, CN II-XII Intact, Oriented x3 - Psychiatric Exam Psychiatric exam: Normal Affect, Normal Mood - Skin Skin Exam: Dry, Intact, Normal Color, Warm Assessment and Plan - Assessment and Plan (Free Text) Assessment: 32 y.o. male with perforated appendicitis Plan: - Continue diet - pain control - Antibiotics - patient is clear for discharge home from the general surgery stand point
== END 2018-02-22 13:47 | disposition home or self-care (01) | DRG 373 ==
LOC: H.ER 21:59 → H.ERHOLD 02-19 03:09 → H.MEDSURG1 02-19 05:20
PROVIDERS: ADMIT Nurse Practitioner Adult Health; ATTEND Nurse Practitioner Adult Health
DX: K35.3 Acute appendicitis with localized peritonitis (principal); R51 Headache